=== PATIENT | male | born 1950 | race Caucasian/White ===

== ENCOUNTER 2024-08-06 10:28 | Observation (INO) ==
[2024-08-06] MEDS ORDERED: IOPAMIDOL 100 ML BOTTLE IV ONE (10:29)
[2024-08-06] MEDS: HYDROmorphone 0.5 MG/0.5 ML SYRINGE IV PRN (11:13)
[2024-08-06] MEDS: 0.9 % SODIUM CHLORIDE 1,000 ML IV ONE ×3 (11:13→19:11)
[2024-08-06 11:17] LABS: Basophils # (Auto) 0.03 K/mcL (0.00-0.30); Basophils % (Auto) 0.2 % (0.0-2.0); Eosinophils # (Auto) 0.06 K/mcL (0.00-0.70); Eosinophils % (Auto) 0.4 % (0.0-7.0); Hematocrit 35.9 % (40.1-51.0); Hemoglobin 12.4 g/dL (13.7-17.5); Lymphocytes # (Auto) 1.64 K/mcL (1.50-4.80); Lymphocytes % (Auto) 10.2 % (15.5-49.0); Mean Cell Volume 90.7 fL (80.0-100.0); Mean Corpuscular HGB Conc 34.5 g/dL (31.0-36.0); Mean Platelet Volume 8.7 fL (8.8-12.5); Monocytes # (Auto) 0.93 K/mcL (0.10-0.90); Monocytes % (Auto) 5.8 % (1.0-12.0); Neutrophils % (Auto) 81.5 % (38.0-78.0); Platelet Count 505 K/mcL (140-440); RBC 3.96 M/mcL (4.63-6.08); Red Cell Distribution Width 11.5 % (11.5-14.5); WBC 16.1 K/mcL (4.5-11.0)
[2024-08-06 11:30] LABS: ALT/SGPT 16 U/L (<40); AST/SGOT 20 U/L (<40); Albumin 3.5 gm/dL (3.2-5.2); Albumin/Globulin Ratio 0.9 (1.0-2.3); Alkaline Phosphatase 95 U/L (39-117); Bilirubin,Total 0.4 mg/dL (0.1-1.0); Blood Urea Nitrogen 32 mg/dL (8-23); Calcium 11.6 mg/dL (8.6-10.4); Carbon Dioxide 29 mmol/L (22-30); Chloride 94 mmol/L (96-108); Globulin 3.8 gm/dL (2.2-3.7); Glomerular Filtration Rate 58; Glucose 126 mg/dL (70-105); Potassium 3.2 mmol/L (3.3-5.1); Sodium 137 mmol/L (133-145)
[2024-08-06] MEDS: HYDROmorphone 1 MG/ML SYRINGE IV ONE (12:35)
[2024-08-06] MEDS: fentaNYL 100 MCG/2 ML VIAL IV ONE ×2 (13:26→15:21)
[2024-08-06 14:14] LABS: Appearance,Urine Clear (Clear); Bacteria,Urine Rare /hpf (0); Bilirubin,Urine Negative (Negative); Color,Urine Yellow; Glucose,Urine (UA) Negative (Negative); Ketones,Urine Negative (Negative); Leukocyte Esterase,Urine Negative /uL (Negative); Nitrate,Urine Negative (Negative); Protein,Urine Negative (Negative); Urine Blood Negative ery/mcL (Negative); Urine RBC 0 /hpf (0-3); Urine Squamous Epithelial Cell 0 /hpf (0-4); Urine WBC 0 /hpf (0-4); Urobilinogen,Urine Normal
[2024-08-06] MEDS: NIFEdipine 30 MG TAB.XL.24H PO ONE (17:30)
[2024-08-06] MEDS: morphine 15 MG TAB.SR.12H PO ONE (17:40)
[2024-08-06] MEDS ORDERED: POLYETHYLENE GLYCOL 3350 17 GM PACKET PO PRN (18:49)
[2024-08-06] MEDS ORDERED: ACETAMINOPHEN 325 MG TABLET PO PRN (18:49)
[2024-08-06] MEDS ORDERED: ENALAPRILAT 1.25 MG/ML VIAL IV PRN (18:49)
[2024-08-06] MEDS ORDERED: LIDOCAINE 2% URO-JET 10 ML JEL.PF.APP PR PRN (18:49)
[2024-08-06] MEDS ORDERED: MAGNESIUM SULFATE 2 GM/50 ML BAG IV PRN (18:49)
[2024-08-06] MEDS ORDERED: POTASSIUM CHLORIDE 40 MEQ in DEXTROSE 5% IN WATER 500 ML IV PRN (18:49)
[2024-08-06] MEDS ORDERED: SENNOSIDES 1 TABLET PO PRN (18:49)
[2024-08-06] MEDS ORDERED: IPRATROPIUM/ALBUTEROL 3 ML AMPUL.NEB NEB PRN (18:49)
[2024-08-06] MEDS ORDERED: POTASSIUM CHLORIDE 20 MEQ TABLET PO PRN (18:49)
[2024-08-06] MEDS ORDERED: ONDANSETRON 4 MG/2 ML VIAL IV PRN (18:49)
[2024-08-06] MEDS: oxyCODONE/APAP 5/325MG TABLET PO PRN (19:42)
[2024-08-06] MEDS: fentaNYL 100 MCG/2 ML VIAL IV PRN (19:43)
[2024-08-06] MEDS: DOCUSATE SODIUM 100 MG CAPSULE PO SCH (20:48)
[2024-08-06] MEDS: 0.9 % SODIUM CHLORIDE 10 ML SYRINGE IV SCH (20:48)
[2024-08-07] MEDS: POLYETHYLENE GLYCOL 3350 17 GM PACKET PO SCH (02:27)
[2024-08-07] MEDS: TAMSULOSIN 0.4 MG CAPSULE PO SCH (02:35)
[2024-08-07 06:47] LABS: Basophils # (Auto) 0.03 K/mcL (0.00-0.30); Basophils % (Auto) 0.2 % (0.0-2.0); Eosinophils # (Auto) 0.03 K/mcL (0.00-0.70); Eosinophils % (Auto) 0.2 % (0.0-7.0); Hematocrit 30.9 % (40.1-51.0); Hemoglobin 10.7 g/dL (13.7-17.5); Lymphocytes # (Auto) 1.38 K/mcL (1.50-4.80); Lymphocytes % (Auto) 9.7 % (15.5-49.0); Mean Corpuscular HGB Conc 34.6 g/dL (31.0-36.0); Mean Platelet Volume 8.7 fL (8.8-12.5); Monocytes # (Auto) 0.95 K/mcL (0.10-0.90); Monocytes % (Auto) 6.7 % (1.0-12.0); Neutrophils % (Auto) 80.4 % (38.0-78.0); Platelet Count 407 K/mcL (140-440); RBC 3.36 M/mcL (4.63-6.08); Red Cell Distribution Width 11.7 % (11.5-14.5); WBC 14.3 K/mcL (4.5-11.0)
[2024-08-07 06:48] LABS: ALT/SGPT 11 U/L (<40); AST/SGOT 17 U/L (<40); Alkaline Phosphatase 77 U/L (39-117); Bilirubin,Direct < 0.2 mg/dL (0-0.3); Bilirubin,Total 0.3 mg/dL (0.1-1.0); Blood Urea Nitrogen 24 mg/dL (8-23); Calcium 10.7 mg/dL (8.6-10.4); Carbon Dioxide 27 mmol/L (22-30); Chloride 100 mmol/L (96-108); Glomerular Filtration Rate 65; Glucose 106 mg/dL (70-105); Lactate Dehydrogenase 126 U/L (135-225); Phosphorous 3.7 mg/dL (2.5-4.5); Potassium 3.2 mmol/L (3.3-5.1); Sodium 138 mmol/L (133-145); Triglycerides 167 mg/dL (<150); Uric Acid 7.6 mg/dL (2.5-8.0)
[2024-08-07] MEDS: morphine 15 MG TAB.SR.12H PO SCH (07:32)
[2024-08-07] MEDS ORDERED: NIFEdipine 30 MG TAB.XL.24H PO SCH (09:00)
[2024-08-07] MEDS: ALLOPURINOL 300 MG TABLET PO SCH (09:01)
[2024-08-07] MEDS: CHLORTHALIDONE 25 MG TABLET PO SCH (09:01)
[2024-08-07] MEDS: NIFEdipine 30 MG TAB.XL.24H PO SCH (09:02)
[2024-08-07] MEDS: LIDOCAINE 2% URO-JET 10 ML JEL.PF.APP PR SCH (09:05)
[2024-08-07] MEDS: AMPICILLIN SODIUM 1 GM in 0.9 % SODIUM CHLORIDE 50 ML IV SCH (16:39)
[2024-08-08] MEDS: POTASSIUM CHLORIDE 20 MEQ TABLET PO PRN (00:29)
[2024-08-08 06:58] LABS: Blood Urea Nitrogen 22 mg/dL (8-23); Carbon Dioxide 27 mmol/L (22-30); Chloride 101 mmol/L (96-108); Glomerular Filtration Rate 65; Glucose 106 mg/dL (70-105); Potassium 3.6 mmol/L (3.3-5.1); Sodium 139 mmol/L (133-145)
== END 2024-08-08 07:15 | disposition home or self-care (01) ==
LOC: MEDSUR 10:28 → ED 10:28 → MEDSUR 18:53
PROVIDERS: ADMIT Internal Medicine; ATTEND Internal Medicine